=== PATIENT | male | born 1975 | race Caucasian/White ===

== ENCOUNTER 2019-07-20 19:15 | Emergency (ER) | payer SELFPAY ==
[~2019-07-20] VITALS: Ht 170.2 cm; Wt 93.5 kg
[~2019-07-20 19:15] MED LIST: CETI10TA19 PO; HYDR28.334 TP
[2019-07-20 19:20] VITALS: BP 136/85; PULSE 89; RESP 16; Ht 170.2 cm; Wt 93.5 kg
== END 2019-07-20 19:42 | disposition home or self-care (01) ==
LOC: E/R 19:15
DX: R21 Rash and other nonspecific skin eruption (principal)
CPT/HCPCS: 99282